=== PATIENT | female | born 1965 | race Hispanic/Latino ===

== ENCOUNTER 2022-08-13 16:36 | Emergency (ER) | payer OTHER ==
[~2022-08-13] VITALS: Ht 162.6 cm; Wt 70.0 kg
[2022-08-13] MEDS ORDERED: METFORMIN HCL500 M2 PO (17:29)
[2022-08-13] MEDS ORDERED: AMLODIPINE-BEN1 EAC2 (17:32)
[2022-08-13] MEDS ORDERED: BACITRACIN ZINC 0.9GM TP ONE ×2 (17:42→17:45)
[2022-08-13] MEDS ORDERED: AUGMENTIN 500-1 EACH PO (17:43)
[2022-08-13] MEDS ORDERED: DIPHTH/TETANUS/ACEL. PERTUSSIS 0.5 ML SYR IM ONE (17:45)
[2022-08-13] MEDS ORDERED: TETANUS/DIPHTHERIA TOX ADULT 0.5 ML SYR ONE (18:11)
== END 2022-08-13 18:07 | disposition home or self-care (01) ==
LOC: FSED 17:03
DX: S91.202A Unspecified open wound of left great toe with damage to nail, initial encounter (principal); W22.09XA Striking against other stationary object, initial encounter; Y93.01 Activity, walking, marching and hiking; Y92.89 Other specified places as the place of occurrence of the external cause; I10 Essential (primary) hypertension
CPT/HCPCS: 90471; 90714; 96372; 99283